=== PATIENT | male | born 1955 | race Caucasian/White ===

== ENCOUNTER 2019-02-05 19:12 | Observation (INO) | payer MEDICARE, OTHER ==
[~2019-02-05] VITALS: Ht 185.4 cm; Wt 97.0 kg
[2019-02-05] MEDS ORDERED: morphine 4 MG/ML VIAL IV STA (19:55)
[2019-02-05] MEDS ORDERED: ASPIRIN 81 MG TAB PO STA (19:55)
[2019-02-05] MEDS ORDERED: ONDANSETRON 4 MG INJ IV STA (19:55)
--- NOTE | 2019-02-05 20:55 | ERD ---
ER Documentation Chief Complaint Chief Complaint CP, BIB RA 81, C/O CP RADIATING FROM BACK 05/09, ACHING AT 1730 WHILE IN BED HPI 63-year-old man complaining of pressure-like substernal chest pain radiating to the back lasting for about 1 hour occurring while he was laying down resting. He denies prior episodes denies history of OR. He had some dizziness and mild shortness of breath which resolved, patient was given aspirin by EMS and transported here. He denies fevers or chills, no cough, no vomiting or diarrhea ROS All systems reviewed and are negative except as per history of present illness. Allergies Allergies: Coded Allergies: No Known Allergy (Unverified , 02/05/19) PMhx/Soc Hypertension History of Surgery: Yes (LUMBAR SPINE ) Anesthesia Reaction: No Hx Neurological Disorder: No Hx Respiratory Disorders: No Hx Cardiac Disorders: Yes (HTN) Hx Psychiatric Problems: No Hx Miscellaneous Medical Probl: Yes (DM II) Hx Alcohol Use: No Hx Substance Use: Yes (MARIJUANA ) Hx Tobacco Use: Yes Smoking Status: Current every day smoker FmHx Family History: No diabetes Physical Exam Vitals Vital Signs Date Temp Pulse Resp B/P (MAP) Pulse Ox O2 O2 Flow FiO2 Time Delivery Rate 02/05/19 97.8 79 22 186/116 97 Room Air 19:50 (139) 02/05/19 97.8 79 22 186/116 97 19:17 (139) Physical Exam GENERAL: Well-developed, well-nourished, well-hydrated, in no apparent distress, looks nontoxic in appearance HEENT: Moist mucous membranes, pink conjunctiva, no cervical spine tenderness or step-off deformities, no goiter, no jaundice or icterus, extraocular movements intact without pain. No submandibular induration, and no pharyngeal erythema NEURO: Alert and oriented 3, cranial nerves II through XII intact bilaterally, pupils equal round reactive to light, no focal deficits or facial asymmetry, sensation intact distally Strength 5/5 in upper and lower extremities bilaterally CARDIAC: Regular rate and rhythm, no murmurs rubs or gallops LUNGS: Clear bilaterally no wheezing crackles or stridor ABDOMEN: Soft nontender, no guarding, no rigidity, no rebound, no psoas sign no obturator sign. Normoactive bowel sounds SKIN: Warm and dry to touch, no abrasions, contusions, or hematomas, no lacerations, no ecchymosis, no target lesions, and without ulcers EXTREMITIES: No clubbing cyanosis or edema, calves are bilaterally symmetrical, no Homans sign, no popliteal cord sign. Distal pulses equal and bilateral PSYCH: Normal affect without agitation or irritability Result Diagram: 02/05/19193902/05/191939 Results 24 hrs Laboratory Tests Test 02/05/19 19:40 White Blood Count 7.2 10^3/ul Red Blood Count 5.68 10^6/ul Hemoglobin 17.0 g/dl Hematocrit 48.6 % Mean Corpuscular Volume 85.6 fl Mean Corpuscular Hemoglobin 29.9 pg Mean Corpuscular Hemoglobin Concent 35.0 g/dl Red Cell Distribution Width 12.7 % Platelet Count 235 10^3/UL Mean Platelet Volume 10.7 fl Immature Granulocytes % 0.600 % Neutrophils % 59.3 % Lymphocytes % 30.8 % Monocytes % 7.9 % Eosinophils % 0.7 % Basophils % 0.7 % Nucleated Red Blood Cells % 0.0 /100WBC Immature Granulocytes # 0.040 10^3/ul Neutrophils # 4.3 10^3/ul Lymphocytes # 2.2 10^3/ul Monocytes # 0.6 10^3/ul Eosinophils # 0.1 10^3/ul Basophils # 0.1 10^3/ul Nucleated Red Blood Cells # 0.0 10^3/ul Sodium Level 143 mmol/L Potassium Level 4.2 mmol/L Chloride Level 111 mmol/L Carbon Dioxide Level 19 mmol/L Anion Gap 13 Blood Urea Nitrogen 15 mg/dl Creatinine 0.59 mg/dl Est Glomerular Filtrat Rate mL/min > 60 mL/min Glucose Level 117 mg/dl Calcium Level 9.3 mg/dl Total Bilirubin 0.4 mg/dl Direct Bilirubin 0.00 mg/dl Indirect Bilirubin 0.4 mg/dl Aspartate Amino Transf (AST/SGOT) 27 IU/L Alanine Aminotransferase (ALT/SGPT) 21 IU/L Alkaline Phosphatase 76 IU/L Troponin I < 0.012 ng/ml Total Protein 7.6 g/dl Albumin 4.0 g/dl Globulin 3.60 g/dl Albumin/Globulin Ratio 1.11 Current Medications Medications Dose Sig/Danae Start Time Status Last (Trade) Ordered Route PRN Stop Time Admin Dose Reason Admin Aspirin 162 mg ONCE STAT 02/05/19 DC 02/05/19 (Aspirin) PO 19:55 02/05/19 20:03 19:56 Morphine 4 mg ONCE STAT 02/05/19 DC 02/05/19 Sulfate IV 19:55 02/05/19 20:03 (morphine) 19:56 Ondansetron 4 mg ONCE STAT 02/05/19 DC 02/05/19 HCl (Zofran IV 19:55 02/05/19 20:03 Inj) 19:56 IV Flush 3 ml PER 02/05/19 (NS 3 ml) PROTOCOL IV 22:00 Ondansetron 4 mg Q6H PRN 02/05/19 HCl (Zofran PO 22:00 Tab) NAUSEA/VOMITI NG Aspirin 81 mg DAILY PO 02/06/19 (Aspirin) 09:00 1 tab Q5M PRN 02/05/19 Nitroglycerin SL .CHEST 22:00 PAIN (Nitroglyceri n (Sl Tab) 0.4 Mg) 650 mg Q6H PRN 02/05/19 Acetaminophen PO .PAIN 1-3 22:00 (Tylenol OR TEMP Tab) Ibuprofen 600 mg Q6H PRN 02/05/19 (Motrin) PO .PAIN 1-3 22:00 OR TEMP Docusate 100 mg Q12H PRN 02/05/19 Sodium PO 22:00 (Colace) .CONSTIPATION Bisacodyl 5 mg DAILY PRN 02/05/19 (Dulcolax) PO 22:00 .CONSTIPATION Amlodipine 5 mg ONCE ONCE 02/05/19 DC Besylate PO 22:00 02/05/19 (Norvasc) 22:01 Procedures/[facility] IV line was established patient was placed on awake overnight monitor rhythm strip revealed a sinus rhythm at about 80 bpm with upright P and T waves. Patient was afebrile EKG performed, read by me revealed a normal sinus rhythm with PACs, normal axis, narrow QRS complex, no concerning ST elevations or depressions noted One AP view of the chest performed, read by me reveals no acute infiltrates, normal mediastinum, sharp costophrenic and cardiac borders, no air under the diaphragm. Otherwise unremarkable chest x-ray. Patient was given aspirin p.o. for cardioprotective measures, amlodipine 5 mg p.o. for hypertension, morphine 4 mg IV and Zofran 4 mg IV CBC and electrolytes are normal, liver function tests are normal, troponin was negative. Patient is without complaints of chest pain at this time and his hypertension has improved, he will be admitted to telemetry setting for continued medical management and cardiology consultation. Departure Diagnosis: Primary Impression: Chest pain Chest pain type: unspecified Qualified Codes: R07.9 - Chest pain, unspecified Additional Impression: Hypertension Hypertension type: essential hypertension Qualified Codes: I10 - Essential (primary) hypertension Condition: Fair MARAH DONAHUE MD Feb 05, 2019 20:55
[2019-02-05] MEDS ORDERED: ACETAMINOPHEN 325 MG TAB PO PRN (22:00)
[2019-02-05] MEDS ORDERED: BISACODYL (EC) 5 MG TAB PO PRN (22:00)
[2019-02-05] MEDS ORDERED: NITROGLYCERIN (SL) 0.4 MG TAB SL PRN (22:00)
[2019-02-05] MEDS ORDERED: DOCUSATE SODIUM 100 MG CAP PO PRN (22:00)
[2019-02-05] MEDS ORDERED: AMLODIPINE 5 MG TAB PO ONE (22:00)
[2019-02-05] MEDS ORDERED: NACL 0.9% 3 ML SYG IV SCH (22:00)
[2019-02-05] MEDS ORDERED: ONDANSETRON 4 MG TAB PO PRN (22:00)
[2019-02-05] MEDS ORDERED: KETOROLAC 15 MG INJ IV ONE (22:48)
[2019-02-06] VITALS (11 sets, daily range): BP systolic 137–182; BP diastolic 69–91; PULSE 55–75; RESP 15–20; Ht 185.4 cm; Wt 97.0 kg
[2019-02-06] MEDS ORDERED: morphine 2 MG INJ IV ONE ×2 (01:51→22:00)
[2019-02-06] MEDS: HYDROCODONE/APAP (5/325) TAB PO PRN ×4 (05:40→20:59)
--- NOTE | 2019-02-06 06:11 | HP ---
Date/Time of Note Date/Time of Note Patient seen on 02/05/2019 at approximately 2315 Assessment/Plan VTE Prophylaxis SCD applied (from Nsg): Yes Pharmacological prophylaxis: NA/contraindicated Pharm contraindication: low risk/ambulating Lines/Catheters IV Catheter Type (from Nrsg): Saline Lock Assessment/Plan Hospital Course This is a 63-year-old male being admitted to the telemetry floor for observation for: #1 chest pain: Rule out ACS. Will check cardiac enzymes x3, first that was nega tive. Will check an echocardiogram. Patient's blood pressures were also elevated and patient reports that he does not take any medications. I will give him a dose of Norvasc at the current time as well. We will need to monitor blood pressure closely. We will check hemoglobin A 1C, lipid panel, TSH. #2 accelerated hypertension: Patient did present with systolic blood pressure in the 180s. He is not currently on her medications. I will give him a dose of Norvasc 5 mg p.o. at the current time. We will monitor his blood pressures during his hospital stay and see whether patient may require to be on medications. #3 unspecified mood disorder: Patient reports that he has been placed on carbamazepine and Paxil for his" nerves". Any medication at the current time. We will need to confirm his actual diagnosis if we can #5 tobacco use: Encourage cessation #6 obesity: we will check hemoglobin A 1C, lipid, TSH #7 DVT GI prophylaxis: SCDs, no GI prophylaxis indicated Result Diagram: 02/05/19193902/05/191939 Results 24hrs Laboratory Tests Test 02/05/19 19:40 02/05/19 23:54 White Blood Count 7.2 Red Blood Count 5.68 Hemoglobin 17.0 Hematocrit 48.6 Mean Corpuscular Volume 85.6 Mean Corpuscular Hemoglobin 29.9 Mean Corpuscular Hemoglobin Concent 35.0 Red Cell Distribution Width 12.7 Platelet Count 235 Mean Platelet Volume 10.7 H Immature Granulocytes % 0.600 H Neutrophils % 59.3 Lymphocytes % 30.8 Monocytes % 7.9 Eosinophils % 0.7 Basophils % 0.7 Nucleated Red Blood Cells % 0.0 Immature Granulocytes # 0.040 H Neutrophils # 4.3 Lymphocytes # 2.2 Monocytes # 0.6 Eosinophils # 0.1 Basophils # 0.1 Nucleated Red Blood Cells # 0.0 Sodium Level 143 Potassium Level 4.2 Chloride Level 111 H Carbon Dioxide Level 19 L Anion Gap 13 Blood Urea Nitrogen 15 Creatinine 0.59 L Est Glomerular Filtrat Rate mL/min > 60 Glucose Level 117 Calcium Level 9.3 Total Bilirubin 0.4 Direct Bilirubin 0.00 Indirect Bilirubin 0.4 Aspartate Amino Transf (AST/SGOT) 27 Alanine Aminotransferase (ALT/SGPT) 21 Alkaline Phosphatase 76 Troponin I < 0.012 < 0.012 Total Protein 7.6 Albumin 4.0 Globulin 3.60 H Albumin/Globulin Ratio 1.11 Creatine Kinase 23 Creatine Kinase Index 1.9 Creatinine Kinase MB (Mass) 0.43 HPI/ROS Admit Date/Time Admit Date/Time Feb 05, 2019 at 21:48 Hx of Present Illness Patient seen on 02/05/2019 at approximately 2315 Chief complaint: Chest pain Patient is a poor historian. This is a 63-year-old male with a past medical history of hypertension and spinal stenosis who presented to the ER complaining of left-sided chest pain and shortness of breath. Patient reports that the pain lasted for about an hour and radiated to his back. He did report some shortness of breath. He states that he was sitting down when this pain occurred. He does have a history of hypertension but is currently not on any medications for this. He has had back surgery as well in the past secondary to stenosis and he does have chronic pain from that as well. Allergies: NKDA Medications: See Jan Const: As per HPI Eyes : No pain discharge or redness or change in visual acuity ENT: No pain, sore throat, congestion, congestion, dysphagia or discharge Respiratory: No shortness of breath, cough, sputum, wheezing, or pleuritic pain Cardiovascular: As per HPI GI : no change in appetite, abdominal pain, nausea, vomiting, diarrhea, constipation, or change in the color his stool Genitourinary: No dysuria, hematuria, flank pain , discharge or CVA tenderness Musculoskeletal: As per HPI Skin: No rash, bruising or hives Neuro: No headache, dizziness, syncope, seizure, focal weakness Endocrine: No polyuria, polydipsia, temperature intolerance Psych: No hallucination, depression, anxiety or suicidal ideation PMH/Family/Social Past Medical History Hypertension, spinal stenosis, mood disorder? Medications Current Medications IV Flush (NS 3 ml) 3 ml PER PROTOCOL IV ; Start 02/05/19 at 22:00 Ondansetron HCl (Zofran Tab) 4 mg Q6H PRN PO NAUSEA/VOMITING; Start 02/05/19 at 22:00 Aspirin (Aspirin) 81 mg DAILY PO ; Start 02/06/19 at 09:00 Nitroglycerin (Nitroglycerin (Sl Tab) 0.4 Mg) 1 tab Q5M PRN SL .CHEST PAIN; Start 02/05/19 at 22:00 Acetaminophen (Tylenol Tab) 650 mg Q6H PRN PO .PAIN 1-3 OR TEMP Last administered on 02/05/19at 23:14; Admin Dose 650 MG; Start 02/05/19 at 22:00 Ibuprofen (Motrin) 600 mg Q6H PRN PO .PAIN 1-3 OR TEMP; Start 02/05/19 at 22:00 Docusate Sodium (Colace) 100 mg Q12H PRN PO .CONSTIPATION; Start 02/05/19 at 22:00 Bisacodyl (Dulcolax) 5 mg DAILY PRN PO .CONSTIPATION; Start 02/05/19 at 22:00 Acetaminophen/ Hydrocodone Bitart ([place] (5/325)) 1 tab Q4H PRN PO MODERATE PAIN LEVEL 4-6 Last administered on 02/06/19at 05:40; Admin Dose 1 TAB; Start 02/05/19 at 23:00 Coded Allergies: No Known Allergy (Unverified , 02/05/19) Past Surgical History Lumbar fusion Social History Alcohol Use: none Smoking Status: Current every day smoker Drug Use: marijuana (Half pack per day) Exam/Review of Systems Vital Signs Vitals Vital Signs Date Temp Pulse Resp B/P (MAP) Pulse Ox O2 O2 Flow FiO2 Time Delivery Rate 02/06/19 55 05:50 02/06/19 98.3 15 182/91 97 Room Air 05:35 (121) Exam Exam General: Patient is a pleasant male currently lying in bed he does not appear to be in any acute distress, he does appear slightly disheveled HEENT: Atraumatic, normocephalic. The pupils are equal, round and reactive. Extraocular motor are intact Neck: Supple with full range of motion. No rigidity or meningismus Chest: Nontender to palpation Lungs: Clear to auscultation bilaterally no crackles rales or wheezing Heart: Normal S1-S2, Regular rhythm and rate. No overt murmurs appreciated on auscultation Abdomen: Soft , nontender, nondistended , bowel sounds are present. No guarding no rebound tenderness , No masses or organomegaly. No costovertebral temporal angle mass Extremities: Normal to inspection, no edema no cyanosis Neurologic: Normal mental status, speech normal, cranial nerves II through XII are intact, motor and sensory are intact, Additional Comments EKG p normal sinus rhythm with PACs, normal axis, narrow QRS complex, no concerning ST elevations or depressions noted PROCEDURE: XR Chest. CLINICAL INDICATION: Chest pain TECHNIQUE: A single portable view of the chest was obtained. COMPARISON: None FINDINGS: The aorta is tortuous and atherosclerotic. The cardiomediastinal silhouette is otherwise within normal limits. The right hemidiaphragm is elevated with right basilar atelectasis. The remaining lungs and pleural spaces are clear. The soft tissues and osseous structures demonstrate benign age related senescent changes. IMPRESSION: No acute cardiopulmonary disease. RPTAT: HPNM Physician Serafin Date Time Electronically viewed and signed by Physician Serafin on 02/05/2019 21:19 / CC: HUGO CABRAL DO [id number] GIGI GUERRERO Feb 06, 2019 06:10
[2019-02-06] MEDS ORDERED: ASPI325T30 PO (06:17)
[2019-02-06] MEDS ORDERED: CARB100T2 PO (06:17)
[2019-02-06] MEDS ORDERED: PARO-37 PO (06:17)
[2019-02-06] MEDS ORDERED: RAME8TAB21 PO (06:17)
[2019-02-06] MEDS ORDERED: CARB200T3 PO (06:17)
[2019-02-06] MEDS ORDERED: NICOTINE (14 MG/24 HR) PATCH TRANSDERM ONE (07:30)
[2019-02-06] MEDS ORDERED: hydrALAzine 20 MG INJ IV PRN (08:00)
[2019-02-06] MEDS: CARBAMAZEPINE 200 MG TAB PO SCH (09:33)
[2019-02-06] MEDS: IBUPROFEN 600 MG TAB PO PRN ×3 (09:33→22:39)
[2019-02-06] MEDS: ASPIRIN 81 MG TAB PO SCH (09:33)
[2019-02-06] MEDS ORDERED: RAMELTEON 8 MG TAB PO PRN (10:30)
--- NOTE | 2019-02-06 10:49 | PN ---
Date/Time of Note Date/Time of Note DATE: 02/06/19 TIME: 10:47 Assessment/Plan VTE Prophylaxis Risk score (from Ns)>0 risk: 4 SCD applied (from Ns): Yes Pharmacological prophylaxis: NA/contraindicated Pharm contraindication: low risk/ambulating Lines/Catheters IV C[facility] (from [facility] Saline Lock Urinary Cath still in place: No Assessment/Plan Hospital Course SUBJECTIVE: Continues to complain of chest pain. OBJECTIVE: Physical Exam General: Adequately build 63 year-old male lying in bed in no apparent distress. HEENT: Normocephalic, atraumatic. Eyes: Anicteric sclerae, conjunctivae clear. ENT: Nasal septum midline, oral mucosa moist. Neck supple, no JVD noticed. Respiratory: Bilaterally clear breath sounds. No use of accessory muscles of respiration. No adventitious breath sounds. Cardiovascular: S1, S2 heard. Regular rate and rhythm. Abdomen: Soft, nontender, and nondistended. Bowel sounds positive in all 4 quadrants. Genitourinary: Deferred. Extremities: No cyanosis, no clubbing, no edema. Peripheral pulses palpable. Neurologic: Cranial nerves II through XII grossly intact. The patient is awake, alert, and oriented. Skin: Normal skin turgor. No skin rashes. Labs & Vitals per chart ASSESSMENT & PLAN 63-year-old male with comorbidities including nicotine use, hypertension, and spinal stenosis who presented to the ER complaining of left-sided chest pain and dyspnea. The patient was admitted to inpatient setting for further treatment and evaluation. 1. Chest pain. -Will rule out ACS. -Troponins x3-. -Pending 2D echocardiogram. -Continue aspirin. 2. Dyslipidemia. -Elevated triglycerides -Will advise a low-cholesterol diet. 3. Hypertension. -Continue antihypertensives. 4. Prediabetes. -Hemoglobin A1c 6.2. -Monitor glycemic trends. 5. Mood disorder. -Continue mood stabilizers. 6. Fluids, electrolytes, and nutrition. -Low-cholesterol diet. 7. DVT prophylaxis. -Bilateral SCDs. -Ambulation. 8. Plan. -Continue aspirin. -Await 2D echocardiogram to rule out ACS. The patient was seen in collaboration with Dr. Lopez. Result Diagram: 02/06/19 0632 02/06/19 0633 Results 24hrs Laboratory Tests Test 02/05/19 19:40 02/05/19 23:54 02/06/19 06:32 02/06/19 06:33 White Blood Count 7.2 7.3 Red Blood Count 5.68 5.26 Hemoglobin 17.0 15.7 Hematocrit 48.6 45.7 Mean Corpuscular 85.6 86.9 Volume Mean Corpuscular 29.9 29.8 Hemoglobin Mean Corpuscular 35.0 34.4 Hemoglobin Concent Red Cell Distribution 12.7 13.0 Width Platelet Count 235 213 Mean Platelet Volume 10.7 H 10.3 Immature Granulocytes 0.600 H 0.300 % Neutrophils % 59.3 55.6 Lymphocytes % 30.8 34.1 Monocytes % 7.9 7.5 Eosinophils % 0.7 1.8 Basophils % 0.7 0.7 Nucleated Red Blood 0.0 0.0 Cells % Immature Granulocytes 0.040 H 0.020 # Neutrophils # 4.3 4.1 Lymphocytes # 2.2 2.5 Monocytes # 0.6 0.6 Eosinophils # 0.1 0.1 Basophils # 0.1 0.1 Nucleated Red Blood 0.0 0.0 Cells # Sodium Level 143 142 Potassium Level 4.2 4.0 Chloride Level 111 H 105 Carbon Dioxide Level 19 L 27 Anion Gap 13 10 Blood Urea Nitrogen 15 18 Creatinine 0.59 L 0.81 Est Glomerular Filtrat > 60 > 60 Rate mL/min Glucose Level 117 119 Calcium Level 9.3 9.2 Total Bilirubin 0.4 0.4 Direct Bilirubin 0.00 0.00 Indirect Bilirubin 0.4 0.4 Aspartate Amino 27 21 Transf (AST/SGOT) Alanine 21 28 Aminotransferase (ALT/ SGPT) Alkaline Phosphatase 76 75 Troponin I < 0.012 < 0.012 < 0.012 Total Protein 7.6 6.5 # Albumin 4.0 3.6 Globulin 3.60 H 2.90 Albumin/Globulin Ratio 1.11 1.24 Creatine Kinase 23 25 Creatine Kinase Index 1.9 2.2 Creatinine Kinase MB 0.43 0.55 (Mass) Hemoglobin A1c 6.2 H Magnesium Level 1.9 Triglycerides Level 240 H Cholesterol Level 166 LDL Cholesterol, 77 Calculated HDL Cholesterol 41 Cholesterol/HDL Ratio 4.0 Thyroid Stimulating 0.986 Hormone (TSH) Exam/Review of Systems Exam Vitals Vital Signs Date Temp Pulse Resp B/P (MAP) Pulse Ox O2 O2 Flow FiO2 Time Delivery Rate 02/06/19 64 09:32 02/06/19 97.2 18 142/83 93 07:44 (102) 02/06/19 Room Air 07:39 Results Results 24hrs Laboratory Tests Test 02/05/19 19:40 02/05/19 23:54 02/06/19 06:32 02/06/19 06:33 White Blood Count 7.2 7.3 Red Blood Count 5.68 5.26 Hemoglobin 17.0 15.7 Hematocrit 48.6 45.7 Mean Corpuscular 85.6 86.9 Volume Mean Corpuscular 29.9 29.8 Hemoglobin Mean Corpuscular 35.0 34.4 Hemoglobin Concent Red Cell Distribution 12.7 13.0 Width Platelet Count 235 213 Mean Platelet Volume 10.7 H 10.3 Immature Granulocytes 0.600 H 0.300 % Neutrophils % 59.3 55.6 Lymphocytes % 30.8 34.1 Monocytes % 7.9 7.5 Eosinophils % 0.7 1.8 Basophils % 0.7 0.7 Nucleated Red Blood 0.0 0.0 Cells % Immature Granulocytes 0.040 H 0.020 # Neutrophils # 4.3 4.1 Lymphocytes # 2.2 2.5 Monocytes # 0.6 0.6 Eosinophils # 0.1 0.1 Basophils # 0.1 0.1 Nucleated Red Blood 0.0 0.0 Cells # Sodium Level 143 142 Potassium Level 4.2 4.0 Chloride Level 111 H 105 Carbon Dioxide Level 19 L 27 Anion Gap 13 10 Blood Urea Nitrogen 15 18 Creatinine 0.59 L 0.81 Est Glomerular Filtrat > 60 > 60 Rate mL/min Glucose Level 117 119 Calcium Level 9.3 9.2 Total Bilirubin 0.4 0.4 Direct Bilirubin 0.00 0.00 Indirect Bilirubin 0.4 0.4 Aspartate Amino 27 21 Transf (AST/SGOT) Alanine 21 28 Aminotransferase (ALT/ SGPT) Alkaline Phosphatase 76 75 Troponin I < 0.012 < 0.012 < 0.012 Total Protein 7.6 6.5 # Albumin 4.0 3.6 Globulin 3.60 H 2.90 Albumin/Globulin Ratio 1.11 1.24 Creatine Kinase 23 25 Creatine Kinase Index 1.9 2.2 Creatinine Kinase MB 0.43 0.55 (Mass) Hemoglobin A1c 6.2 H Magnesium Level 1.9 Triglycerides Level 240 H Cholesterol Level 166 LDL Cholesterol, 77 Calculated HDL Cholesterol 41 Cholesterol/HDL Ratio 4.0 Thyroid Stimulating 0.986 Hormone (TSH) Medications Medication Current Medications IV Flush (NS 3 ml) 3 ml PER PROTOCOL IV ; Start 02/05/19 at 22:00 Ondansetron HCl (Zofran Tab) 4 mg Q6H PRN PO NAUSEA/VOMITING; Start 02/05/19 at 22:00 Aspirin (Aspirin) 81 mg DAILY PO Last administered on 02/06/19 09:33; Admin Dose 81 MG; Start 02/06/19 at 09:00 Nitroglycerin (Nitroglycerin (Sl Tab) 0.4 Mg) 1 tab Q5M PRN SL .CHEST PAIN; Start 02/05/19 at 22:00 Acetaminophen (Tylenol Tab) 650 mg Q6H PRN PO .PAIN 1-3 OR TEMP Last admini stered on 02/05/19at 23:14; Admin Dose 650 MG; Start 02/05/19 at 22:00 Ibuprofen (Motrin) 600 mg Q6H PRN PO .PAIN 1-3 OR TEMP Last administered on 02/06/19 09:33; Admin Dose 600 MG; Start 02/05/19 at 22:00 Docusate Sodium (Colace) 100 mg Q12H PRN PO .CONSTIPATION; Start 02/05/19 at 22:00 Bisacodyl (Dulcolax) 5 mg DAILY PRN PO .CONSTIPATION; Start 02/05/19 at 22:00 Acetaminophen/ Hydrocodone Bitart ([place] (5/325)) 1 tab Q4H PRN PO MODERATE PAIN LEVEL 4-6 Last administered on 02/06/19at 09:34; Admin Dose 1 TAB; Start 02/05/19 at 23:00 Influenza Virus Vaccine Quadrival (Fluzone) 0.5 ml ONCE ONCE IM* ; Start 02/07/19 at 10:00; Stop 02/07/19 at 10:01 Carbamazepine (Tegretol) 200 mg QAM PO Last administered on 02/06/19 09:33; Admin Dose 200 MG; Start 02/06/19 at 09:00 Carbamazepine (Tegretol) 400 mg QPM PO ; Start 02/06/19 at 21:00 Paroxetine HCl (Paxil) 20 mg HS PO ; Start 02/06/19 at 21:00 Ramelteon (Rozerem) 8 mg HS PRN PO SLEEP; Start 02/06/19 at 10:30 Hydralazine HCl (Apresoline) 10 mg Q4H PRN IV ELEVATED BLOOD PRESSURE; Start 02/06/19 at 08:00 SADIQ BRANTLEY NP Feb 06, 2019 10:49
--- NOTE | 2019-02-06 11:54 | CONDCODE ---
Medicare Criteria-> INP to OBS Patient still in hospital: Yes SI/IS Criteria met: No Attending MD agrees w/change: Yes Order entered in Pt. record: Yes Pt. does not meet Inp Criteria: Yes Medicare Inp->Obs Criteria met: Yes UR Phys Advisor eSign required: Yes I personally scribed for SADIQ BRANTLEY NP ([facility]) on 02/06/19 at 11:54. Electronically submitted by Korin Saunders ([facility] SADIQ BRANTLEY NP Feb 06, 2019 11:54
--- NOTE | 2019-02-06 11:55 | CONDCODE ---
Medicare Criteria-> INP to OBS Patient still in hospital: Yes SI/IS Criteria met: No Attending MD agrees w/change: Yes Order entered in Pt. record: Yes Pt. does not meet Inp Criteria: Yes Medicare Inp->Obs Criteria met: Yes UR Phys Advisor eSign required: Yes I personally scribed for MARIBELL ARAIZA MD ([facility] on 02/06/19 at 11:55. Electronically submitted by Korin Saunders ([facility] MARIBELL ARAIZA MD Feb 06, 2019 11:55
[2019-02-06] MEDS: PAROXETINE 20 MG TAB PO SCH (20:59)
[2019-02-06] MEDS: carBAMAZepine CHEW 100 MG CHEW PO SCH (20:59)
[2019-02-06] MEDS: AMLODIPINE 2.5 MG TAB PO SCH (21:00)
[2019-02-06] MEDS ORDERED: LIDOCAINE 5% PATCH TD ONE (22:00)
[2019-02-07] VITALS (12 sets, daily range): BP systolic 113–167; BP diastolic 70–91; PULSE 53–101; RESP 18–20
[2019-02-07] MEDS: HYDROCODONE/APAP (5/325) TAB PO PRN ×3 (06:56→20:30)
[2019-02-07] MEDS: IBUPROFEN 600 MG TAB PO PRN (06:56)
[2019-02-07] MEDS: ASPIRIN 81 MG TAB PO SCH (09:12)
[2019-02-07] MEDS: AMLODIPINE 2.5 MG TAB PO SCH ×2 (09:12→20:31)
[2019-02-07] MEDS: CARBAMAZEPINE 200 MG TAB PO SCH (09:12)
--- NOTE | 2019-02-07 11:48 | RADRPT ---
Echocardiogram Report Patient Name: KATHIA BARAJASPatient ID: [id number] : 1955 (63y 2m)Study Date: 02/06/2019 7:57:52 AM Gender: MAccession #: [id number] Tech: LE Location: Ref.Physician: GIGI GUERRERO Height(Cm): BSA: Weight(Kg): Quality: GoodAccount #: Procedures: Echocardiographic Report: Transthoracic echocardiogram with complete 2D, M-Mode, and doppler examination. Indications: Evaluate Left Ventricular function, and Chest Pain. Measurements: 2D/M Mode Doppler Measurement Value Normal Range Measurement Value Normal Range LVIDd 2D 4.9 [ 4.2 - 5.8 ] cm VALERIE Vmax 2.5 [ 2.0 - 4.0 ] cm2 LVIDs 2D 3.3 [ 2.5 - 4.0 ] cm AV Mean [place] 0.9 [ 70.0 - 90.0 ] cm/sec LVPWd 2D 1.0 [ 0.6 - 1.0 ] cm AV Mean PG 4.0 [ 2.0 - 4.0 ] mmHg IVSd 2D 1.0 [ 0.6 - 1.0 ] cm AV Peak [place] 1.4 [ 100.0 - 170.0 ] cm/sec IVS/LVPW 2D 1.0 ratio AV Peak PG 8.0 [ 2.0 - 9.0 ] mmHg LVOT Diam 2.0 [ 2.3 - 2.9 ] cm AV VTI 24.3 cm LVOT Area 3.1 cm2 LVOT Peak [place] 1.1 [ 70.0 - 110.0 ] cm/sec LVOT Peak PG 5.0 [ 2.0 - 6.0 ] mmHg MV E Peak [place] 0.9 [ 60.0 - 130.0 ] cm/sec MV A Peak [place] 1.1 [ 100.0 - 120.0 ] cm/sec MV E/A 0.8 [ 0.8 - 1.5 ] ratio MV Decel Time 225 [ 104 - 258 ] msec Lat E` Lobito 0.1 [ 10.0 - 15.0 ] cm/sec Med E` Lobito 0.1 cm/sec MV E/A 0.8 [ 0.8 - 1.5 ] ratio PV Peak Lobito 0.8 [ 40.0 - 80.0 ] cm/sec PV Peak PG 3.0 mmHg Findings: Left Ventricle: Normal left ventricular systolic function. Normal left ventricular cavity size. Normal left ventricular wall thickness. Ejection fraction is visually estimated at 60 %. Tissue Doppler/Mitral Doppler indices are consistent with impaired relaxation (Stage I diastolic dysfunction). Right Ventricle: Normal right ventricular size. Normal right ventricular systolic function. Left Atrium: There is mild enlargement of left atrium. Right Atrium: The right atrium is normal in size. Mitral Valve: Normal appearance of the mitral valve. Mild mitral annular calcification. Aortic Valve: Normal appearance of the aortic valve. No significant aortic stenosis or insufficiency. Tricuspid Valve: Normal appearance of the tricuspid valve. Unable to obtain RVSP due to minimal presence of tricuspid regurgitation. Pulmonic Valve: Pulmonic valve not well visualized. There is trace pulmonic regurgitation. Pericardium: Normal pericardium with no significant pericardial effusion. Aorta: Normal aortic root. IVC: Normal size and normal respiratory collapse consistent with normal right atrial pressure. Conclusions: Normal left ventricular systolic function. Grade 1 diastolic dysfunction. Mild left atrial enlargement. Mitral annular calcification. Trace pulmonic regurgitation. Electronically Signed By: Aneta Knapp 2019-02-07 11:47:41 PDT
--- NOTE | 2019-02-07 19:19 | PN ---
Date/Time of Note Date/Time of Note DATE: 02/07/19 TIME: 19:18 Assessment/Plan VTE Prophylaxis Risk score (from Ns)>0 risk: 3 SCD applied (from Ns): Yes SCD contraindicated: low risk/ambulating Pharmacological prophylaxis: LMWH Pharm contraindication: low risk/ambulating Lines/Catheters IV [facility]from [facility] Saline Lock Urinary Cath still in place: No Assessment/Plan Hospital Course A/P 1. Chest pain ruled out ACS. Nonexertional atypical. Troponins negative. Stable, evaluate for other causes 2. Accelerated hypertension, mod stable, adjust medical therapy 3. Tobacco abuse status post counseling offered patch 4. Prediabetes 5. Morbid obesity metabolic syndrome continue risk factor modification 6. Generalized anxiety disorder versus schizophrenia versus? Subjective: Events noted Objective: Vital signs stable Physical exam No pallor adenopathy JVD Regular no murmur gallop Clear nontender Benign no abdominal bruits No edema Result Diagram: 02/07/19 0624 02/07/19 0624 Results 24hrs Laboratory Tests Test 02/07/19 06:24 White Blood Count 6.8 Red Blood Count 5.33 Hemoglobin 16.2 Hematocrit 46.4 Mean Corpuscular Volume 87.1 Mean Corpuscular Hemoglobin 30.4 Mean Corpuscular Hemoglobin Concent 34.9 Red Cell Distribution Width 12.8 Platelet Count 212 Mean Platelet Volume 10.6 H Immature Granulocytes % 0.400 Neutrophils % 51.0 Lymphocytes % 38.9 Monocytes % 6.6 Eosinophils % 1.9 Basophils % 1.2 Nucleated Red Blood Cells % 0.0 Immature Granulocytes # 0.030 Neutrophils # 3.5 Lymphocytes # 2.7 Monocytes # 0.5 Eosinophils # 0.1 Basophils # 0.1 Nucleated Red Blood Cells # 0.0 Sodium Level 142 Potassium Level 4.0 Chloride Level 109 Carbon Dioxide Level 23 Anion Gap 10 Blood Urea Nitrogen 18 Creatinine 0.66 Est Glomerular Filtrat Rate mL/min > 60 Glucose Level 132 Calcium Level 9.3 Phosphorus Level 3.2 Magnesium Level 1.9 Carbamazepine (Tegretol) Level 8.0 Exam/Review of Systems Exam Vitals Vital Signs Date Temp Pulse Resp B/P (MAP) Pulse Ox O2 O2 Flow FiO2 Time Delivery Rate 02/07/19 53 17:27 02/07/19 98.5 18 167/91 96 Room Air 15:09 (116) Intake and Output 02/06/19 02/06/19 02/07/19 1515:00 23:00 07:00 IntakeIntake Total 1000 ml BalanceBalance 1000 ml Results Results 24hrs Laboratory Tests Test 02/07/19 06:24 White Blood Count 6.8 Red Blood Count 5.33 Hemoglobin 16.2 Hematocrit 46.4 Mean Corpuscular Volume 87.1 Mean Corpuscular Hemoglobin 30.4 Mean Corpuscular Hemoglobin Concent 34.9 Red Cell Distribution Width 12.8 Platelet Count 212 Mean Platelet Volume 10.6 H Immature Granulocytes % 0.400 Neutrophils % 51.0 Lymphocytes % 38.9 Monocytes % 6.6 Eosinophils % 1.9 Basophils % 1.2 Nucleated Red Blood Cells % 0.0 Immature Granulocytes # 0.030 Neutrophils # 3.5 Lymphocytes # 2.7 Monocytes # 0.5 Eosinophils # 0.1 Basophils # 0.1 Nucleated Red Blood Cells # 0.0 Sodium Level 142 Potassium Level 4.0 Chloride Level 109 Carbon Dioxide Level 23 Anion Gap 10 Blood Urea Nitrogen 18 Creatinine 0.66 Est Glomerular Filtrat Rate mL/min > 60 Glucose Level 132 Calcium Level 9.3 Phosphorus Level 3.2 Magnesium Level 1.9 Carbamazepine (Tegretol) Level 8.0 Medications Medication Current Medications IV Flush (NS 3 ml) 3 ml PER PROTOCOL IV ; Start 02/05/19 at 22:00 Ondansetron HCl (Zofran Tab) 4 mg Q6H PRN PO NAUSEA/VOMITING; Start 02/05/19 at 22:00 Aspirin (Aspirin) 81 mg DAILY PO Last administered on 02/07/19at 09:12; Admin Dose 81 MG; Start 02/06/19 at 09:00 Nitroglycerin (Nitroglycerin (Sl Tab) 0.4 Mg) 1 tab Q5M PRN SL .CHEST PAIN; Start 02/05/19 at 22:00 Acetaminophen (Tylenol Tab) 650 mg Q6H PRN PO .PAIN 1-3 OR TEMP Last administered on 02/05/19at 23:14; Admin Dose 650 MG; Start 02/05/19 at 22:00 Ibuprofen (Motrin) 600 mg Q6H PRN PO .PAIN 1-3 OR TEMP Last administered on 02/07/19at 06:56; Admin Dose 600 MG; Start 02/05/19 at 22:00 Docusate Sodium (Colace) 100 mg Q12H PRN PO .CONSTIPATION; Start 02/05/19 at 22:00 Bisacodyl (Dulcolax) 5 mg DAILY PRN PO .CONSTIPATION; Start 02/05/19 at 22:00 Acetaminophen/ Hydrocodone Bitart ([place] (5/325)) 1 tab Q4H PRN PO MODERATE PAIN LEVEL 4-6 Last administered on 02/07/19 13:41; Admin Dose 1 TAB; Start 02/05/19 at 23:00 Carbamazepine (Tegretol) 200 mg QAM PO Last administered on 02/07/19 09:12; Admin Dose 200 MG; Start 02/06/19 at 09:00 Carbamazepine (Tegretol) 400 mg QPM PO Last administered on 02/06/19 20:59; Admin Dose 400 MG; Start 02/06/19 at 21:00 Paroxetine HCl (Paxil) 20 mg HS PO Last administered on 02/06/19 20:59; Admin Dose 20 MG; Start 02/06/19 at 21:00 Ramelteon (Rozerem) 8 mg HS PRN PO SLEEP Last administered on 02/06/19 22:39; Admin Dose 8 MG; Start 02/06/19 at 10:30 Hydralazine HCl (Apresoline) 10 mg Q4H PRN IV ELEVATED BLOOD PRESSURE; Start 02/06/19 at 08:00 Amlodipine Besylate (Norvasc) 2.5 mg BID PO Last administered on 02/07/19at 0 9:12; Admin Dose 2.5 MG; Start 02/06/19 at 21:00 MYAH MENJIVAR MD Feb 07, 2019 19:19
[2019-02-07] MEDS: PAROXETINE 20 MG TAB PO SCH (20:30)
[2019-02-07] MEDS: carBAMAZepine CHEW 100 MG CHEW PO SCH (20:31)
[2019-02-07] MEDS: LISINOPRIL 5 MG TAB PO SCH (20:31)
[2019-02-07] MEDS: ENOXAPARIN 30 MG/0.3 ML SYG SC SCH (20:55)
[2019-02-08] VITALS (10 sets, daily range): BP systolic 119–145; BP diastolic 72–84; PULSE 57–82; RESP 20
[2019-02-08] MEDS: ASPIRIN 81 MG TAB PO SCH (08:22)
[2019-02-08] MEDS: CARBAMAZEPINE 200 MG TAB PO SCH (08:22)
[2019-02-08] MEDS: LISINOPRIL 5 MG TAB PO SCH (08:23)
[2019-02-08] MEDS: AMLODIPINE 2.5 MG TAB PO SCH (08:23)
[2019-02-08] MEDS: ENOXAPARIN 30 MG/0.3 ML SYG SC SCH (08:25)
--- NOTE | 2019-02-08 13:46 | DS ---
Date/Time of Note Date/Time of Note DATE: 02/08/19 TIME: 13:45 Discharge Summary Admission/Discharge Info Admit Date/Time Feb 05, 2019 at 21:48 Discharge Date/Time Patient Condition: Stable Procedures Chest x-ray: No acute process 2D echo Conclusions: Normal left ventricular systolic function. Grade 1 diastolic dysfunction. Mild left atrial enlargement. Mitral annular calcification. Trace pulmonic regurgitation. Hx of Present Illness 63-year-old gentleman admitted with chest pain Hospital Course Hospitalist coverage/hospital course A/P 1. Chest pain ruled out ACS. Nonexertional atypical. Troponins negative. Stable, evaluate for other causes. Etio bp? Stable fit for discharge home. 2. Accelerated hypertension, mod stable, adjust medical therapy 3. Tobacco abuse status post counseling offered patch 4. Prediabetes 5. Morbid obesity metabolic syndrome continue risk factor modification 6. Generalized anxiety disorder versus schizophrenia versus? Home Meds Reported Medications Aspirin* (Aspirin*) 325 Mg Tablet, 325 MG PO DAILY PRN for PAIN LEVEL 1-5, TAB 02/06/19 Carbamazepine* (Carbamazepine*) 100 Mg Tab.chew, 400 MG PO QPM, #60 TAB.CHEW 02/06/19 Carbamazepine (Carbamazepine) 200 Mg Tablet, 200 MG PO QAM, #60 TAB 02/06/19 Paroxetine Hcl* (Paroxetine*) 20 Mg Tablet, 20 MG PO HS, TAB 02/06/19 Ramelteon (Rozerem) 8 Mg Tablet, 8 MG PO HS PRN for SLEEP, TAB 02/06/19 Primary Care Provider Care Physician No Primary Time spent on discharge: < 30 minutes Pending Labs Laboratory Tests Test 02/08/19 06:27 White Blood Count 6.4 10^3/ul (4.8-10.8) Red Blood Count 5.47 10^6/ul (4.70-6.10) Hemoglobin 16.3 g/dl (14.0-18.0) Hematocrit 48.2 % (42.0-52.0) Mean Corpuscular Volume 88.1 fl (82.0-101.0) Mean Corpuscular Hemoglobin 29.8 pg (29.0-33.0) Mean Corpuscular Hemoglobin Concent 33.8 g/dl (32.0-37.0) Red Cell Distribution Width 12.8 % (11.5-14.5) Platelet Count 215 10^3/UL (140-415) Mean Platelet Volume 10.4 fl (7.4-10.4) Immature Granulocytes % 0.300 % (0.001-0.429) Neutrophils % 57.5 % (39.0-77.0) Lymphocytes % 34.2 % (15.0-51.0) Monocytes % 6.2 % (0.0-11.0) Eosinophils % 1.2 % (0.0-7.0) Basophils % 0.6 % (0.0-2.0) Nucleated Red Blood Cells % 0.0 /100WBC (0.0-0.0) Immature Granulocytes # 0.020 10^3/ul (0.0-0.031) Neutrophils # 3.7 10^3/ul (1.6-7.5) Lymphocytes # 2.2 10^3/ul (0.8-2.9) Monocytes # 0.4 10^3/ul (0.3-0.9) Eosinophils # 0.1 10^3/ul (0.0-0.5) Basophils # 0.0 10^3/ul (0.0-0.1) Nucleated Red Blood Cells # 0.0 10^3/ul (0.0-0.0) Sodium Level 142 mmol/L (135-144) Potassium Level 4.6 mmol/L (3.5-5.1) Chloride Level 108 mmol/L (97-110) Carbon Dioxide Level 26 mmol/L (21-31) Anion Gap 8 (5-13) Blood Urea Nitrogen 20 mg/dl (7-20) Creatinine 0.70 mg/dl (0.61-1.24) Est Glomerular Filtrat Rate mL/min > 60 mL/min (>60) Glucose Level 149 mg/dl (70-220) Calcium Level 9.3 mg/dl (8.4-10.2) Phosphorus Level 3.1 mg/dl (2.5-4.9) Magnesium Level 1.9 mg/dl (1.7-2.5) Total Bilirubin 0.3 mg/dl (0.2-1.3) Direct Bilirubin 0.00 mg/dl (0.00-0.20) Indirect Bilirubin 0.3 mg/dl (0-1.1) Aspartate Amino Transf (AST/SGOT) 24 IU/L (15-46) Alanine Aminotransferase (ALT/SGPT) 25 IU/L (13-69) Alkaline Phosphatase 72 IU/L (42-121) Total Protein 7.3 g/dl (6.1-8.1) Albumin 3.8 g/dl (3.3-4.9) Globulin 3.50 g/dl (1.3-3.2) Albumin/Globulin Ratio 1.08 Triglycerides Level 238 mg/dl (0-149) Cholesterol Level 189 mg/dl (100-200) LDL Cholesterol, Calculated 99 mg/dl HDL Cholesterol 42 mg/dl (30-78) Cholesterol/HDL Ratio 4.5 RATIO Lipase 111 U/L (23-300) MYAH MENJIVAR MD Feb 08, 2019 13:46
--- NOTE | 2019-02-08 13:47 | PDOCDIS ---
Discharge Instructions CONDITION [id number] Patient Condition: [id number] Stable HOME CARE INSTRUCTIONS: [id number] Diet Instructions: [id number] Reduced Sodium (cut back on salt) ACTIVITY: [id number] Activity Restrictions: [id number] Rest between Activity Avoid heavy lifting FOLLOW UP/APPOINTMENTS Follow-up Plan appt primary 1-2wks MYAH MENJIVAR MD Feb 08, 2019 13:47
[2019-02-08] MEDS ORDERED: LISI-313 PO (13:48)
[2019-02-08] MEDS ORDERED: AMLO2.5T78 PO (13:48)
== END 2019-02-08 16:30 | disposition home or self-care (01) ==
LOC: E/R 19:12 → INTOOBSV 21:48 → TEL 21:48
PROVIDERS: ADMIT Family Medicine; ATTEND Internal Medicine
DX: R07.9 Chest pain, unspecified (principal); I10 Essential (primary) hypertension; R73.03 Prediabetes; Z72.0 Tobacco use; E66.01 Morbid (severe) obesity due to excess calories; Z68.28 Body mass index [BMI] 28.0-28.9, adult; E78.5 Hyperlipidemia, unspecified; F39 Unspecified mood [affective] disorder
CPT/HCPCS: 36415; 71045; 80048; 80053; 80061; 80156; 82550; 82553; 83036; 83690; 83735; 84100; 84443; 84484; 85025; 93005; 93306; 96374; 96375; 99285; G0378; J1650; J1885; J2270; J2405; 90686; 99217